=== PATIENT | male | born 1995 | race Caucasian/White ===

== ENCOUNTER 2016-09-09 10:16 | Emergency (ER) | payer OTHER ==
[~2016-09-09 10:16] MED LIST: MOTRIN600 M1 PO; ROBAXIN500 MG PO
[2016-09-09] MEDS ORDERED: NO MEDICATIONS (10:20)
[2016-09-09 10:53] LABS: MICRO INDICATED? YES; URINE APPEARANCE CLEAR; URINE BILIRUBIN NEG (NEG); URINE BLOOD TRACE-INTACT (NEG); URINE COLOR YELLOW; URINE GLUCOSE NEG (NORM); URINE KETONE NEG (NEG); URINE LEUKOCYTE ESTERASE TRACE (NEG); URINE NITRATE NEG (NEG); URINE PROTEIN NEG (NEG); URINE SOURCE CLEAN CATCH; URINE SPECIFIC GRAVITY 1.025 (1.003-1.035); URINE UROBILINOGEN 0.2 MG/DL (NORM)
[2016-09-09 10:57] LABS: URINE WBC 25-50 /[HPF] (0-5)
[2016-09-09 10:58] LABS: CULTURE INDICATED? YES; URINE BACTERIA 1+ (NEG); URINE MUCUS PRESENT; URINE SQUAMOUS EPITHELIAL CELL FEW /[HPF]
[2016-09-10 21:28] LABS: CHLAMYDIA TRACH Not Detected (Not Detected); N GONOR Detected (Not Detected)
== END 2016-09-09 11:05 | disposition home or self-care (01) ==
LOC: SED 10:16
PROVIDERS: Physician Assistant
DX: N34.2 Other urethritis (principal); Z20.2 Contact with and (suspected) exposure to infections with a predominantly sexual mode of transmission
CPT/HCPCS: 81003; 87086; 87491; 87591; 96372; 99283; J0696

== ENCOUNTER 2016-09-24 18:08 | Emergency (ER) | payer OTHER ==
--- NOTE | ~2016-09-24 | CT2 ---
[facility] A Service of [facility] RADIOLOGY TEXT RESULTS PATIENT: KATERINA BARFIELD LOCATION: SED : [birth year] UNIT #: [id number] AGE: [address]: JAKOB WATSON SEX: M ORDER DR: [id number] [place] [id number] E MR#: [id number] Acc #: [id number] NAME: KATERINA BARFIELD : 1995 SEX: M STUDY DATE/TIME: 09/24/2016 19:15 UNIT: SED ROOM: STUDY DESCRIPTION: CT Abd and Pelv W Cont Ordering Physician: [facility] Primary Care Physician: Mahnaz Orozco M.D. MEDICAL IMAGING REPORT This report is preliminary unless electronic signature is present. EXAM CT abdomen and pelvis with contrast INDICATIONS Bloody diarrhea for the past 3 days. TECHNIQUE Contrast-enhanced CT abdomen and pelvis. This CT exam was performed with one or more of the following radiation dose reduction techniques: automatic exposure control, adjustment of mA and/or kV according to patient size, and iterative reconstruction. COMPARISON STUDIES None. FINDINGS Included lung bases clear. Liver, spleen, kidneys, adrenal glands, pancreas and gallbladder unremarkable. The bowel loops are non-dilated. Appendix is not well seen on this study. No appreciable pericecal inflammation. There is no appreciable abnormal bowel wall thickening or inflammatory change. PELVIS WITH CONTRAST: No pelvic mass. No aggressive appearing bone lesion. IMPRESSION 1. No clearly acute finding. No evidence for obstruction or appreciable bowel wall thickening or inflammatory change. [facility] A Service of [facility] RADIOLOGY TEXT RESULTS PATIENT: KATERINA BARFIELD LOCATION: SED : [birth year] UNIT #: [id number] AGE: [address]: JAKOB WATSON SEX: M ORDER DR: 2. Appendix not well seen but no appreciable pericecal inflammation. Dictated by... John Paul Smith M.D. THIS IS AN ELECTRONICALLY VERIFIED REPORT John Paul Smith M.D. at 09/24/2016 10:24 PM RENETTA/omid TD: 09/24/2016 22:06 JOB #: [id number] MEDICAL IMAGING REPORT Page 1 of 1
[~2016-09-24 18:08] MED LIST changes: +NO MEDICATIONS
[2016-09-24] MEDS ORDERED: LINZESS72 MCG (18:14)
[2016-09-24 18:49] LABS: BASOPHIL# 0.1 X10e3 (0-0.3); BASOPHIL% 1.2 % (0-2.5); EOSINOPHIL# 0.1 X10e3 (0-0.7); EOSINOPHIL% 2.3 % (0.0-7.0); HEMATOCRIT 45.8 % (38.0-50.0); LYMPHOCYTE# 1.7 X10e3 (1.0-3.5); LYMPHOCYTE% 30.1 % (17.0-45.0); MEAN CELL VOLUME 87.3 FL (83-96); MEAN CORPUSCULAR HEMOGLOBIN 30.5 PG (28-34); MEAN PLATELET VOLUME 8.3 FL (6.5-11.5); MONOCYTE# 0.4 X10e3 (0-1.0); MONOCYTE% 7.9 % (3.0-12.0); NEUTROPHIL# 3.3 X10e3 (1.5-7.1); NEUTROPHIL% 58.5 % (40-75); PLATELET COUNT 168 X10e3 (140-420); RED BLOOD COUNT 5.25 X10e (3.90-5.60); WHITE BLOOD COUNT 5.6 X10e3 (4.0-10.5)
[2016-09-24 18:52] LABS: DIFF IND NO
[2016-09-24 18:54] LABS: URINE SOURCE CLEAN CATCH
[2016-09-24 19:03] LABS: URINE APPEARANCE CLEAR; URINE BLOOD 1+ (NEG); URINE COLOR YELLOW; URINE GLUCOSE NEG (NORM); URINE KETONE 1+ (NEG); URINE LEUKOCYTE ESTERASE NEG (NEG); URINE NITRATE NEG (NEG); URINE PH 5.5 (5-8); URINE PROTEIN 1+ (NEG); URINE SPECIFIC GRAVITY >=1.030 (1.003-1.035); URINE UROBILINOGEN 0.2 MG/DL (NORM)
[2016-09-24 19:06] LABS: MICRO INDICATED? YES; URINE BILIRUBIN NEG (NEG)
[2016-09-24 19:08] LABS: ALBUMIN SERUM 4.3 g/dL (3.5-5.0); BILIRUBIN, DIRECT 0.1 mg/dL (0.0-0.2); BILIRUBIN,INDIRECT 0.5 mg/dL (0.0-0.9); BILIRUBIN,TOTAL 0.6 mg/dL (0.2-2.0); CALCIUM SERUM 9.1 mg/dL (8.4-10.2); GLOM FILT RATE Estimated 107.9 mL/min (>60); POTASSIUM 3.7 mmol/L (3.5-5.1); PROTEIN TOTAL SERUM 7.3 g/dL (6.0-8.3)
[2016-09-24 19:09] LABS: CULTURE INDICATED? NO; URINE BACTERIA NEG (NEG); URINE CRYSTALS CALCIUM OXALATE /[HPF]; URINE MUCUS PRESENT; URINE SQUAMOUS EPITHELIAL CELL OCCAS /[HPF]; URINE WBC 0-2 /[HPF] (0-5)
== END 2016-09-24 20:15 | disposition home or self-care (01) ==
LOC: SED 18:08
PROVIDERS: Physician Assistant
DX: R10.84 Generalized abdominal pain (principal); R19.7 Diarrhea, unspecified; F17.210 Nicotine dependence, cigarettes, uncomplicated; Z88.5 Allergy status to narcotic agent
CPT/HCPCS: 36415; 74177; 80048; 80076; 81003; 82150; 83690; 85025; 96360; 99284; Q9967